=== PATIENT | male | born 1975 | race Caucasian/White ===

== ENCOUNTER → 2021-11-20 | Outpatient (CLI) | payer OTHER ==
[~2021-11-20] MED LIST: BACTRIM DS TAB1 EACH PO; CLOTRIMAZOLE-BE30 ML TP; HYDRALAZINE HCL25 MG PO
== END ==
LOC: HEART CORB 10:06
DX: I10 Essential (primary) hypertension (principal); R00.1 Bradycardia, unspecified
CPT/HCPCS: 93306

== ENCOUNTER → 2021-11-23 | Outpatient (CLI) | payer OTHER ==
[2021-11-24 08:13] LABS: CORTISOL 9.6 ug/dL (.)
[2021-11-28 01:11] LABS: METANEPHRINE, UR 59 ug/L (Undefined); NORMETANEPHRINE, UR 287 ug/L (Undefined)
== END ==
LOC: LAB 10:37
PROVIDERS: Internal Medicine Nephrology
DX: I10 Essential (primary) hypertension (principal)
CPT/HCPCS: 36415; 82088; 82384; 82533; 82570; 83497; 83835; 84244; 84443; 84585